=== PATIENT | female | born 1945 | race Hispanic/Latino ===

== ENCOUNTER 2018-03-16 15:52 | Observation (INO) | payer OTHER, MEDICARE ==
[~2018-03-16] VITALS: Ht 152.4 cm; Wt 74.4 kg
[2018-03-16 16:21] LABS: BASOPHILS % (AUTO) 0.8 % (0.0-5.0); EOSINOPHILS % (AUTO) 3.5 % (0.0-8.0); HEMATOCRIT 42.6 % (36-48); LYMPHOCYTES % (AUTO) 39.5 % (21.0-51.0); MEAN CORPUSCULAR HGB CONC 33.5 g/dL (32.0-36.0); MEAN CORPUSCULAR VOLUME 89.6 fL (79-99); MONOCYTES % (AUTO) 6.3 % (3.0-13.0); NEUTROPHILS % (AUTO) 49.9 % (40.0-77.0); PLATELET COUNT (AUTO) 286 K/uL (130-400); RED BLOOD CELL COUNT(AUTO) 4.75 MIL/uL (4.00-5.50); RED CELL DISTRIBUTION WIDTH 12.4 % (11.0-15.5); WHITE BLOOD COUNT (AUTO) 9.6 K/uL (4.8-10.8)
[2018-03-16] MEDS ORDERED: SODIUM CHLORIDE 0.9% 1000ML 1,000 ML IV ONE (16:23)
[2018-03-16 16:30] LABS: CREATININE 0.7 mg/dL (0.5-1.5); POTASSIUM 3.7 mmol/L (3.5-5.1)
[2018-03-16 16:37] LABS: INR 0.99 (0.85-1.15); PARTIAL THROMBOPLASTIN TIME 25.2 SEC (26.3-35.5); PROTHROMBIN TIME 10.4 SEC (9.6-11.6)
[2018-03-16 16:41] LABS: BILIRUBIN,TOTAL 0.2 mg/dL (0.2-1.0); TOTAL PROTEIN, SERUM 8.5 g/dL (6.0-8.3)
[2018-03-16 17:43] LABS: APPEARANCE,URINE Clear (CLEAR); BILIRUBIN,URINE Negative (NEGATIVE); COLOR,URINE Yellow (YELLOW); GLUCOSE, URINE (UA) Negative (NEGATIVE); KETONES,URINE Negative (NEGATIVE); LEUKOCYTE ESTERASE ,URINE Small (NEGATIVE); NITRATE,URINE Negative (NEGATIVE); OCCULT BLOOD,URINE Negative (NEGATIVE); PROTEIN,URINE Negative (NEGATIVE); UROBILINOGEN,URINE 0.2 mg/dL (0.2-1.0)
[2018-03-16 17:50] LABS: RBC,URINE None Seen /HPF (0-1)
[2018-03-16 17:51] LABS: BACTERIA,URINE None Seen /HPF (None Seen); SQUAMOUS EPITHELIAL CELL,UR None Seen /HPF (0-2); TRANSITIONAL EPI CELLS,URINE Rare /HPF (None Seen); WBC,URINE 0-1 /HPF (0-1); YEAST,URINE BUDDING None Seen /HPF (None Seen)
[2018-03-16] MEDS ORDERED: ASPIRIN 325 MG TABLET ONE (17:54)
[2018-03-16 22:20] VITALS: BP 153/86
[2018-03-16] MEDS ORDERED: TRAM50TA4 PO (23:32)
[2018-03-16] MEDS ORDERED: LOSA50TA25 PO (23:32)
[2018-03-16] MEDS ORDERED: SITA50TA PO (23:32)
[2018-03-16] MEDS ORDERED: GLIM2TAB3 PO (23:32)
[2018-03-16 23:55] VITALS: BP 139/76
[2018-03-16 23:58] VITALS: BP 139/76
[2018-03-17] MEDS: SODIUM CHLORIDE 0.9% 1000ML 1,000 ML IV SCH ×3 (02:00→21:00)
[2018-03-17 04:01] VITALS: BP 135/91
[2018-03-17 05:51] LABS: HEMATOCRIT 39.5 % (36-48); MEAN CORPUSCULAR HEMOGLOBIN 31.3 pg (27.0-33.0); MEAN CORPUSCULAR HGB CONC 34.6 g/dL (32.0-36.0); MEAN CORPUSCULAR VOLUME 90.4 fL (79-99); PLATELET COUNT (AUTO) 255 K/uL (130-400); RED BLOOD CELL COUNT(AUTO) 4.37 MIL/uL (4.00-5.50); RED CELL DISTRIBUTION WIDTH 12.7 % (11.0-15.5); WHITE BLOOD COUNT (AUTO) 8.3 K/uL (4.8-10.8)
[2018-03-17 06:18] LABS: CREATININE 0.8 mg/dL (0.5-1.5); POTASSIUM 3.9 mmol/L (3.5-5.1)
[2018-03-17 07:00] VITALS: BP 146/79
[2018-03-17] MEDS: PANTOPRAZOLE SODIUM 40 MG TABLET.DR PO SCH (10:03)
[2018-03-17] MEDS: ASPIRIN 325 MG TABLET PO SCH (10:03)
[2018-03-17] MEDS: ENOXAPARIN SODIUM 30 MG/0.3 ML SQ SCH (10:05)
[2018-03-17] MEDS ORDERED: GADODIAMIDE 10 MMOL/20 ML ML IV ONE (10:27)
[2018-03-17 11:00] VITALS: BP 138/83
[2018-03-17 16:00] VITALS: BP 151/79
[2018-03-17 19:40] VITALS: BP 141/89
[2018-03-17] MEDS ORDERED: TRAMADOL HCL 50 MG TABLET PO PRN (20:15)
[2018-03-17] MEDS ORDERED: LINAGLIPTIN 5 MG TABLET PO SCH (21:00)
[2018-03-17 23:12] VITALS: BP 146/85
[2018-03-18 03:55] VITALS: BP 141/75
[2018-03-18 04:34] LABS: HEMATOCRIT 41.8 % (36-48); MEAN CORPUSCULAR HGB CONC 33.5 g/dL (32.0-36.0); MEAN CORPUSCULAR VOLUME 89.5 fL (79-99); PLATELET COUNT (AUTO) 249 K/uL (130-400); RED BLOOD CELL COUNT(AUTO) 4.67 MIL/uL (4.00-5.50); RED CELL DISTRIBUTION WIDTH 12.3 % (11.0-15.5)
[2018-03-18 05:09] LABS: CREATININE 0.7 mg/dL (0.5-1.5); POTASSIUM 3.9 mmol/L (3.5-5.1); THYROID STIMULATING HORMONE 5.23 uIU/mL (0.36-3.74)
[2018-03-18 08:00] VITALS: BP 152/89
[2018-03-18] MEDS ORDERED: GLIMEPIRIDE 2 MG TABLET PO SCH (08:00)
[2018-03-18] MEDS: PANTOPRAZOLE SODIUM 40 MG TABLET.DR PO SCH (08:07)
[2018-03-18] MEDS: ASPIRIN 325 MG TABLET PO SCH (08:08)
[2018-03-18] MEDS: ENOXAPARIN SODIUM 30 MG/0.3 ML SQ SCH (08:09)
[2018-03-18] MEDS ORDERED: LOSARTAN 50 MG TABLET PO SCH (09:00)
[2018-03-18 11:00] VITALS: BP 158/88
== END 2018-03-18 16:37 | disposition home or self-care (01) ==
LOC: EDH 15:52 → EDHIP 20:17 → INTOOBSV 20:17 → 3AH 21:23
PROVIDERS: ADMIT Internal Medicine Critical Care Medicine; ATTEND Internal Medicine Critical Care Medicine
DX: G45.9 Transient cerebral ischemic attack, unspecified (principal); R42 Dizziness and giddiness; G40.909 Epilepsy, unspecified, not intractable, without status epilepticus; M19.90 Unspecified osteoarthritis, unspecified site; E78.5 Hyperlipidemia, unspecified; N20.0 Calculus of kidney; H53.8 Other visual disturbances; R47.81 Slurred speech; E11.9 Type 2 diabetes mellitus without complications; I10 Essential (primary) hypertension
CPT/HCPCS: 36415 ×3; 70450; 70553; 71045; 80048 ×2; 80053; 80061; 81001; 82550; 82948 ×7; 83605; 83735; 84443; 84484; 85025; 85027 ×2; 85610; 85730; 85732; 93005; 93306; 93880; 96360; 96361 ×2; 96372 ×2; 99285; A4510; A9579; G0378 ×44; J1650 ×2; J7030 ×3